=== PATIENT | male | born 1955 | race Caucasian/White ===

== ENCOUNTER 2020-06-23 03:11 | Emergency (ER) | payer MEDICAID, OTHER ==
[~2020-06-23] VITALS: Ht 162.6 cm; Wt 73.5 kg
[~2020-06-23 03:11] MED LIST: ASPI-1822 PO; DOXY100C9 PO; GLIP5TAB4 PO; HYDR12.51 PO; LISI10TA11 PO; METF500T PO; METO-485 PO; OMEP-100 PO; TRAM50TA1 PO; [UNRECOGNIZED DRUG - CODE] PO
[2020-06-23 03:50] VITALS: BP 150/98
--- NOTE | 2020-06-23 03:50 | NUR ---
TO TENT # 02 AMBULATORY
--- NOTE | 2020-06-23 04:25 | NUR ---
65 Y/O MALE PRESENTED TO ED C/O INTRACTABLE HICCUPS. PT TESTED + COVID X 4 DAYS AGO. PT SECONDARY C/O YUSUF & BODY ACHES. PT HAVING HARD TIME SLEEPING DUE TO HICCUPS. A/O X 4 . RR EVEN AND UNLABORED. LUNG SOUNDS CLEAR. PT SITTING IN CHAIR IN TENT, NO ACUTE DISTRESS. VSS. FAMILY CHAIRSIDE. PMH: HTN, DM NKA
[2020-06-23] MEDS ORDERED: chlorproMAZINE 25 MG/ML AMP IM ONE ×2 (05:45→06:25)
--- NOTE | 2020-06-23 06:25 | NUR ---
UNABLE TO ADMINISTER MEDICATION ORDER DUE TO ZERO AVAILABILITY IN HOSPITAL , JACLYN MADE AWARE.
--- NOTE | 2020-06-23 06:28 | NUR ---
PER ERMD CANCEL SHARON AND NOVEL SWABS PT RECENTLY TESTED POSITIVE FOR COVID.
--- NOTE | 2020-06-23 07:21 | NUR ---
REPORT GIVEN TO ANGELA HANKINS FOR CONTINUATION OF CARE.
[2020-06-23 07:22] LABS: BASOPHILS % (AUTO) 0.4 % (0.0-2.0); EOSINOPHILS % (AUTO) 0.1 % (0.0-4.0); HEMATOCRIT 38.4 % (36-52); HEMOGLOBIN 12.8 g/dL (12.0-18.0); LYMPHOCYTES # (AUTO) 0.9 K/uL (2.0-11.5); MEAN CORPUSCULAR HEMOGLOBIN 29 pg (27-31); MEAN CORPUSCULAR HGB CONC 33 g/dL (33-37); MEAN CORPUSCULAR VOLUME 85.7 fL (80-94); MONOCYTES # (AUTO) 0.6 K/uL (0.8-1.0); MONOCYTES % (AUTO) 7.2 % (1.7-9.3); NEUTROPHILS # (AUTO) 7.2 K/uL (1.8-7.7); NEUTROPHILS % (AUTO) 82.3 % (42.2-75.2); PLATELET COUNT (AUTO) 211 K/uL (140-450); RED BLOOD CELL COUNT(AUTO) 4.48 MIL/uL (4.20-6.10); RED CELL DISTRIBUTION WIDTH 13.2 % (11.6-13.7); WHITE BLOOD COUNT (AUTO) 8.7 K/uL (4.8-10.8)
[2020-06-23 07:37] LABS: ALBUMIN 3.2 g/dL (3.4-5.0); ANION GAP 16.1 (8-16); CARBON DIOXIDE 24.4 mmol/L (21-32); POTASSIUM 4.5 mmol/L (3.5-5.1); TOTAL BILIRUBIN 0.5 mg/dL (0.0-1.0)
[2020-06-23] MEDS ORDERED: cefTRIAXone 1,000 MG in LIDOCAINE MPF 1% 2.1 ML IM ONE (08:00)
[2020-06-23] MEDS ORDERED: AZITHROMYCIN 250 MG TAB PO SCH (08:15)
[2020-06-23] MEDS ORDERED: cefTRIAXone 1,000 MG VIAL ONE (08:49)
[2020-06-23] MEDS ORDERED: LIDOCAINE MPF 1% 5 ML ONE (08:50)
--- NOTE | 2020-06-23 09:27 | NUR ---
Patient discharged with v/s stable. Written and verbal after care instructions given and explained. Patient alert, oriented and verbalized understanding of instructions. Ambulatory with steady gait. All questions addressed prior to discharge. ID band removed. Patient advised to follow up with PMD. Rx of DOXY,THORAZINE given. Patient educated on indication of medication including possible reaction and side effects. Opportunity to ask questions provided and answered.
[2020-06-23 09:28] VITALS: BP 121/78
== END 2020-06-23 09:27 | disposition home or self-care (01) ==
LOC: MED 03:11
DX: U07.1 COVID-19 (principal); R06.6 Hiccough; E11.65 Type 2 diabetes mellitus with hyperglycemia; I10 Essential (primary) hypertension; Z79.84 Long term (current) use of oral hypoglycemic drugs; Z79.82 Long term (current) use of aspirin; Z79.899 Other long term (current) drug therapy
CPT/HCPCS: 36415; 71045; 80053; 83880; 84484; 85025; 93005; 96372; 99285; J0696; J2001